=== PATIENT | female | born 1955 | race Two or more races ===

== ENCOUNTER 2018-12-11 17:44 | Inpatient (IN) | payer SELFPAY ==
[~2018-12-11] VITALS: Ht 157.5 cm; Wt 45.4 kg
[2018-12-11] MEDS ORDERED: SODIUM CHLORIDE 0.9% 1,000 ML IV ONE (18:05)
[2018-12-11 19:16] LABS: CHLORIDE 108 mEq/L (98-107)
[2018-12-11 19:18] LABS: INR 1.6; PROTHROMBIN TIME 16.4 sec (9.1-11.1)
[2018-12-11 19:28] LABS: CLARITY URINE CLOUDY (CLEAR); COLOR URINE DARK YELLOW (YELLOW); KETONES URINE NEGATIVE (NEGATIVE); LEUKOCYTE ESTERASE URINE 3+ (NEGATIVE); NITRITE URINE NEGATIVE (NEGATIVE); OCCULT BLOOD URINE TRACE (NEGATIVE); PROTEIN URINE NEGATIVE (NEGATIVE); SPECIFIC GRAVITY URINE 1.014 (1.005-1.030)
[2018-12-11 19:49] LABS: MEAN CORPUSCULAR HEMOGLOBIN 37.7 pg (28.0-32.0); MEAN CORPUSCULAR VOLUME 125.6 fL (81.0-99.0); MEAN PLATELET VOLUME 8.7 fl (7.4-10.4); RED BLOOD CELL COUNT 1.33 mill/uL (4.2-5.4); RED CELL DISTRIBUTION WIDTH 23.9 % (11.6-14.6)
[2018-12-11 20:01] LABS: HEMATOCRIT. 16.7 % (36.0-48.0); PLATELET 20 x1000/uL (130-400)
[2018-12-11] MEDS ORDERED: HYDROCODONE/ACETAMINOPHEN 5/325MG TABLET PO ONE (20:15)
[2018-12-11] MEDS ORDERED: CEFTRIAXONE 1 G PREMIX 50 ML IV ONE (20:45)
[2018-12-11 21:17] LABS: NUCLEATED RED BLOOD CELLS 11 /100 WBC; PLATELET ESTIMATE MARKEDLY DECREASED
[2018-12-12] MEDS ORDERED: SODIUM CHLORIDE 0.9% 1,000 ML IV ONE (04:49)
[2018-12-12 05:42] LABS: HEMATOCRIT. 24.8 % (36.0-48.0); HEMOGLOBIN. 8.1 g/dL (12.0-16.0); MEAN CORPUSCULAR VOLUME 107.6 fL (81.0-99.0); MEAN PLATELET VOLUME 10.4 fl (7.4-10.4); PLATELET 54 x1000/uL (130-400)
[2018-12-12] MEDS ORDERED: SODIUM CHLORIDE 0.45% 1,000 ML IV SCH (06:09)
[2018-12-12] MEDS ORDERED: LORAZEPAM 2MG/ML CPJ IV PRN (06:15)
[2018-12-12] MEDS ORDERED: CLONIDINE 0.1MG TABLET PO PRN (06:15)
[2018-12-12] MEDS ORDERED: ACETAMINOPHEN 325MG TABLET PO PRN (06:15)
[2018-12-12] MEDS ORDERED: MAGNESIUM/ALUMINUM HYDROXIDE/SIMETHICONE 30ML UDC PO PRN (06:15)
[2018-12-12] MEDS ORDERED: HYDROCODONE/ACETAMINOPHEN 5/325MG TABLET PO PRN (06:15)
[2018-12-12] MEDS ORDERED: DIPHENHYDRAMINE 50MG/ML VIAL IV PRN (06:15)
[2018-12-12] MEDS ORDERED: GUAIFENESIN 200MG/10ML SUGAR FREE UDC PO PRN (06:15)
[2018-12-12] MEDS ORDERED: ONDANSETRON HCL 4MG/2ML INJ IV PRN (06:15)
[2018-12-12] MEDS ORDERED: DOCUSATE SODIUM 100MG CAPSULE PO PRN (06:15)
[2018-12-12] MEDS ORDERED: IPRATROPIUM/ALBUTEROL 0.5-3(2.5)MG/3ML NEB INH PRN (06:15)
[2018-12-12 07:21] LABS: NUCLEATED RED BLOOD CELLS 12 /100 WBC
[2018-12-12 07:25] LABS: PLATELET ESTIMATE MARKEDLY DECREASED
[2018-12-12] MEDS ORDERED: HYDROMORPHONE HCL/PF 2MG/ML CPJ IV PRN (16:00)
[2018-12-12] MEDS ORDERED: HYDRALAZINE 20MG/ML VIAL IV PRN (16:00)
[2018-12-12] MEDS ORDERED: PANTOPRAZOLE SODIUM 40 MG/VIAL IV SCH (16:00)
[2018-12-12 16:07] VITALS: BP 115/74
[2018-12-12 16:14] VITALS: BP 115/74
[2018-12-12 16:17] VITALS: BP 115/74
[2018-12-12 16:39] LABS: TOTAL IRON BINDING CAPACITY 161 ug/dL (250-450)
[2018-12-12] MEDS ORDERED: CEFTRIAXONE 1 G PREMIX 50 ML IV SCH (17:00)
[2018-12-12 17:07] LABS: HEPATITIS B SURFACE ANTIGEN NEGATIVE
[2018-12-12 17:11] LABS: VITAMIN B12 SERUM >2000 pg/mL pg/mL (211-911)
[2018-12-12 17:20] LABS: FERRITIN > 1650 ng/mL (10-291)
[2018-12-12 17:36] LABS: HEPATITIS A AB IGM NEGATIVE (NEGATIVE)
[2018-12-12 18:09] VITALS: BP 101/60
[2018-12-12 20:00] VITALS: BP 95/57
[2018-12-12] MEDS: SODIUM CHLORIDE 0.9% INJ 3ML FLUSH IVF SCH (21:23)
[2018-12-12 21:56] VITALS: BP 105/62
[2018-12-13] VITALS (12 sets, daily range): BP systolic 84–97; BP diastolic 42–61
[2018-12-13 01:31] LABS: HEMATOCRIT 23.4 % (36.0-48.0); HEMOGLOBIN 7.4 g/dL (12.0-16.0)
[2018-12-13 01:55] LABS: CREATINE KINASE MB FRACTION 4.7 ng/mL (0.5-3.6)
[2018-12-13] MEDS: SODIUM CHLORIDE 0.9% INJ 3ML FLUSH IVF SCH ×3 (05:39→22:00)
[2018-12-13 09:07] LABS: HEMOGLOBIN. 8.1 g/dL (12.0-16.0); MEAN CORPUSCULAR VOLUME 112.6 fL (81.0-99.0); MEAN PLATELET VOLUME 9.5 fl (7.4-10.4); RED BLOOD CELL COUNT 2.31 mill/uL (4.2-5.4); RED CELL DISTRIBUTION WIDTH 27.3 % (11.6-14.6)
[2018-12-13 09:11] LABS: INR 1.5; PARTIAL THROMBOPLASTIN TIME 41.9 sec (23.4-31.0); PROTHROMBIN TIME 14.8 sec (9.1-11.1)
[2018-12-13] MEDS: PANTOPRAZOLE SODIUM 40 MG/VIAL IV SCH ×2 (09:11→22:55)
[2018-12-13 09:21] LABS: PLATELET 29 x1000/uL (130-400)
[2018-12-13 09:37] LABS: CHLORIDE 110 mEq/L (98-107)
[2018-12-13 09:46] LABS: T4 FREE 0.69 ng/dL (0.76-1.46)
[2018-12-13] MEDS: DEXT 5%/0.45% NACL 1000ML 1,000 ML IV SCH ×2 (10:27→22:54)
[2018-12-13 14:06] LABS: NUCLEATED RED BLOOD CELLS 2 /100 WBC; PLATELET ESTIMATE MARKEDLY DECREASED
[2018-12-13] MEDS: CEFTRIAXONE 1,000 MG in DEXTROSE 5% WATER 50 ML IV SCH (18:41)
[2018-12-13] MEDS ORDERED: SODIUM POLYSTYRENE SULFONATE 15 G/60 ML BOT NG NR (20:00)
[2018-12-14] VITALS (26 sets, daily range): BP systolic 59–103; BP diastolic 30–63
[2018-12-14] MEDS: SODIUM CHLORIDE 0.9% INJ 3ML FLUSH IVF SCH ×3 (06:00→22:00)
[2018-12-14 08:28] LABS: HEMATOCRIT. 24.9 % (36.0-48.0); HEMOGLOBIN. 7.9 g/dL (12.0-16.0); MEAN CORPUSCULAR HEMOGLOBIN 35.6 pg (28.0-32.0); MEAN CORPUSCULAR VOLUME 111.9 fL (81.0-99.0); MEAN PLATELET VOLUME 9.8 fl (7.4-10.4); RED BLOOD CELL COUNT 2.23 mill/uL (4.2-5.4); RED CELL DISTRIBUTION WIDTH 26.4 % (11.6-14.6)
[2018-12-14 08:57] LABS: PLATELET 27 x1000/uL (130-400)
[2018-12-14] MEDS: PANTOPRAZOLE SODIUM 40 MG/VIAL IV SCH ×2 (09:03→21:00)
[2018-12-14] MEDS: DEXT 5%/0.45% NACL 1000ML 1,000 ML IV SCH (09:46)
[2018-12-14] MEDS ORDERED: SODIUM POLYSTYRENE SULFONATE 15 G/60 ML BOT PO SCH (10:30)
[2018-12-14 12:31] LABS: NUCLEATED RED BLOOD CELLS 5 /100 WBC
[2018-12-14 13:20] LABS: PLATELET ESTIMATE MARKEDLY DECREASED
[2018-12-14] MEDS ORDERED: LACTULOSE 20G/30ML UDC PO SCH (17:00)
[2018-12-14] MEDS: CEFTRIAXONE 1,000 MG in DEXTROSE 5% WATER 50 ML IV SCH (17:50)
[2018-12-14] MEDS: MORPHINE SULFATE 4 MG/ML CPJ (NOT FOR IM USE) IV SCH (22:20)
[2018-12-15] VITALS (28 sets, daily range): BP systolic 51–114; BP diastolic 27–67
[2018-12-15] MEDS: MORPHINE SULFATE 4 MG/ML CPJ (NOT FOR IM USE) IV SCH ×6 (01:20→16:01)
[2018-12-15] MEDS: DEXT 5%/0.45% NACL 1000ML 1,000 ML IV SCH (01:20)
[2018-12-15] MEDS: SODIUM CHLORIDE 0.9% INJ 3ML FLUSH IVF SCH ×2 (06:00→13:15)
[2018-12-15] MEDS: PANTOPRAZOLE SODIUM 40 MG/VIAL IV SCH (10:41)
== END 2018-12-15 23:11 | disposition expired | DRG 343 ==
LOC: ER 17:44 → 5EST 20:45 → ENRESERV 12-12 13:11 → 6EST 12-15 10:55
PROVIDERS: ADMIT Internal Medicine; ATTEND Internal Medicine
PROC: 30233N1 Transfusion of Nonautologous Red Blood Cells into Peripheral Vein, Percutaneous Approach (ICD-10-PCS; 2018-12-11)
PROC: 30233R1 Transfusion of Nonautologous Platelets into Peripheral Vein, Percutaneous Approach (ICD-10-PCS; principal; 2018-12-12)
DX: C79.51 Secondary malignant neoplasm of bone (principal); E43 Unspecified severe protein-calorie malnutrition; N17.9 Acute kidney failure, unspecified; K92.0 Hematemesis; D68.4 Acquired coagulation factor deficiency; E83.52 Hypercalcemia; E87.5 Hyperkalemia; Z66 Do not resuscitate; D69.6 Thrombocytopenia, unspecified; E88.09 Other disorders of plasma-protein metabolism, not elsewhere classified; K72.90 Hepatic failure, unspecified without coma; Z51.5 Encounter for palliative care; I50.9 Heart failure, unspecified; E86.0 Dehydration; D53.9 Nutritional anemia, unspecified; K74.60 Unspecified cirrhosis of liver; R04.0 Epistaxis; R18.8 Other ascites; E80.6 Other disorders of bilirubin metabolism; N39.0 Urinary tract infection, site not specified; I13.0 Hypertensive heart and chronic kidney disease with heart failure and stage 1 through stage 4 chronic kidney disease, or unspecified chronic kidney disease; N18.9 Chronic kidney disease, unspecified; Z68.1 Body mass index [BMI] 19.9 or less, adult
CPT/HCPCS: 36415; 71045; 71250; 74176; 76700; 80048; 80076; 82105; 82140; 82550; 82553; 82607; 82728; 82746; 83540; 83550; 84132; 84439; 84443; 84484; 85014; 85018; 85044; 86705; 86709; 86803; 86850; 86900; 86920; 87340; 93005; 93970; 96361; 96365; 99291; A6261; C9113; J0696; J2060; J2270; J3490; J7030; J7050; J7060; P9016; P9034